=== PATIENT | male | born 1975 | race American Indian/Alaskan Native ===

== ENCOUNTER 2017-07-13 15:58 | Emergency (ER) | payer OTHER ==
[2017-07-13 16:19] VITALS: RESP 16; TEMP 98.9
--- NOTE | 2017-07-13 16:26 | ED PDOC ---
Arrival/HPI - General Chief Complaint: Abnormal Skin Integrity Time Seen by Provider: 07/13/17 16:21 Historian: Patient - History of Present Illness Narrative History of Present Illness (Text): 07/13/17 16:27 42yr old male presents today for staple removal. pt was in ER 8 days ago and had greyson placed to scalp after steel hit him on the head. pt denies headaches , dizziness, weakness. denies fever/chills. c/o soreness to the laceration/ staple site. no other complaints. Time/Duration: Other (8 days) Past Medical History - Provider Review Nursing Documentation Reviewed: Yes - Travel History Have you recently traveled outside [place] w/in the past 3 mons?: No - Psychiatric Hx Psychophysiologic Disorder: No Hx Substance Use: No Family/Social History - Physician Review Nursing Documentation Reviewed: Yes Family/Social History: Unknown Family HX Smoking Status: Light Smoker < 10 Cigarettes Daily Hx Alcohol Use: No Hx Substance Use: No Allergies/Home Meds Allergies/Adverse Reactions: Allergies No Known Allergies Allergy (Verified 07/13/17 16:00) Home Medications: Home Meds Medication Instructions Recorded Confirmed No Known Home Med 07/05/17 07/13/17 Review of Systems - Review of Systems Constitutional: absent: Fatigue, Fevers Eyes: absent: Vision Changes Respiratory: absent: SOB, Cough Cardiovascular: absent: Chest Pain, Palpitations Gastrointestinal: absent: Abdominal Pain, Nausea, Vomiting Musculoskeletal: absent: Arthralgias Skin: Laceration Neurological: absent: Headache, Dizziness Psychiatric: absent: Anxiety, Depression Physical Exam Vital Signs Reviewed: Yes Vital Signs Temp Pulse Resp BP Pulse Ox 07/13/17 16:00 98.9 F 92 H 16 147/97 H 97 Temperature: Afebrile Blood Pressure: Hypertensive Pulse: Regular Respiratory Rate: Normal Appearance: Positive for: Well-Appearing, Non-Toxic, Comfortable Pain Distress: None Mental Status: Positive for: Alert and Oriented X 3 - Systems Exam Head: Present: Laceration (there is a healing laceration with [address] no erythema; no edema. no purulent discharge. ). No: Atraumatic, Tenderness Mouth: Present: Moist Mucous Membranes Respiratory/Chest: Present: Clear to Auscultation Cardiovascular: Present: Regular Rate and Rhythm Upper Extremity: Present: Normal ROM Lower Extremity: Present: Normal ROM Neurological: Present: GCS=15 Skin: Present: Warm, Dry Psychiatric: Present: Alert Medical Decision Making ED Course and Treatment: 07/13/17 16:43 Patient is nontoxic well-appearing in no distress. Vital signs are stable. staple removal: 5 greyson removed Wound healing well without signs of infection I advised the patient to keep the wound clean and dry apply bacitracin twice daily and return if symptoms worsen persist or if new symptoms develop Patient verbalizes understanding of discharge instructions and need for immediate followup. all aspects of this case were discussed the attending of record. Impression: Wound check, staple removal Keep the wound clean and dry Follow up with primary care physician within the next 2 days Return immediately if symptoms worsen persist or if new symptoms develop Disposition/Present on Arrival - Present on Arrival Any Indicators Present on Arrival: No History of DVT/PE: No History of Uncontrolled Diabetes: No Urinary Catheter: No History of Decub. Ulcer: No History Surgical Site Infection Following: None - Disposition Have Diagnosis and Disposition been Completed?: Yes Diagnosis: Removal of greyson Disposition: HOME/ ROUTINE Disposition Time: 16:21 Patient Plan: Discharge Condition: GOOD Discharge Instructions (ExitCare): Laceration (ED) Additional Instructions: keep wound clean and dry follow up with the primary care physician within the next 2 days return if symptoms worsen,persist or if new symptoms develop. return immediately if signs of infection develop; high fevers, increasing pain, redness, swelling or if purulent discharge develops. Referrals: PCP,NO [Primary Care Provider] - Follow up with primary Osorio Jolly MD [Staff Provider] - Follow up with primary
[2017-07-13 16:57] VITALS: BP 142/87; PULSE 89; O2SAT 100
== END 2017-07-13 16:37 | disposition home or self-care (01) ==
LOC: ED 15:58
DX: Z48.02 Encounter for removal of sutures (principal)